=== PATIENT | male | born 1955 | race Caucasian/White ===

== ENCOUNTER → 2019-04-15 | Outpatient (REF) | payer MEDICARE, OTHER ==
[2019-04-15 20:25] LABS: BASO % 0.4 % (0.0-1.0); EOS # 0.1 10^3/uL (0.0-0.5); EOS % 1.6 % (0.0-3.0); HEMATOCRIT 40.8 % (42.0-52.0); HEMOGLOBIN 13.7 g/dl (13.5-17.5); LYMPH # 1.4 10^3/uL (1.5-5.0); LYMPH % 20.8 % (24.0-44.0); MEAN CORPUSCULAR HEMOGLOBIN 32.7 pg (27.0-33.0); MEAN CORPUSCULAR HGB CONC 33.6 g/dl (32.0-36.5); MEAN CORPUSCULAR VOLUME 97.4 fl (80.0-96.0); MONO # 0.5 10^3/uL (0.0-0.8); MONO % 7.1 % (0.0-5.0); NEUTROPHILS # 4.8 10^3/uL (1.5-8.5); NEUTROPHILS % 69.8 % (36.0-66.0); PLATELET COUNT, AUTOMATED 186 10^3/uL (150-450); RED BLOOD COUNT 4.19 10^6/uL (4.30-6.10); WHITE BLOOD COUNT 6.9 10^3/uL (4.0-10.0)
[2019-04-15 20:42] LABS: ALBUMIN 3.7 GM/DL (3.2-5.2); BILIRUBIN,TOTAL 0.6 MG/DL (0.2-1.0); CALCIUM LEVEL 8.6 MG/DL (8.8-10.2); CHOLESTEROL RISK RATIO 2.156 (<5); CREATININE FOR GFR 1.28 MG/DL (0.70-1.30); POTASSIUM SERUM 3.7 MEQ/L (3.5-5.1); THYROID STIMULATING HORMONE 0.942 uIU/ML (0.358-3.740); TOTAL PROTEIN 6.6 GM/DL (6.4-8.2)
[2019-04-15 20:52] LABS: HEMOGLOBIN A1c 5.6 %
[2019-04-17 14:27] LABS: PSA TOTAL 1.5 ng/mL (0.0-4.0)
== END ==
LOC: M SFHCLERA 14:38
PROVIDERS: ATTEND Family Medicine
DX: R39.9 Unspecified symptoms and signs involving the genitourinary system (principal); I10 Essential (primary) hypertension; Z79.899 Other long term (current) drug therapy
CPT/HCPCS: 80053; 80061; 83036; 84154; 84443; 85025; 90682; G0008; G0463

== ENCOUNTER → 2019-04-27 | Outpatient (REF) | payer MEDICARE, OTHER ==
[2019-04-27 14:02] LABS: APPEARANCE, URINE CLEAR (CLEAR); BACTERIA, URINE AUTO NEGATIVE (NEGATIVE); BILIRUBIN, URINE AUTO NEGATIVE (NEGATIVE); BLOOD, URINE BLOOD NEGATIVE (NEGATIVE); COLOR, URINE YELLOW (YELLOW); GLUCOSE, URINE (UA) AUTO NEGATIVE (NEGATIVE); KETONE, URINE AUTO NEGATIVE (NEGATIVE); LEUKOCYTE ESTERASE, URINE AUTO NEGATIVE (NEGATIVE); MUCUS, URINE SMALL (NEGATIVE); NITRITE, URINE AUTO NEGATIVE (NEGATIVE); PROTEIN, URINE AUTO NEGATIVE (NEGATIVE); RBC, URINE AUTO 1 /HPF (0-3); SPECIFIC GRAVITY URINE AUTO 1.019 (1.002-1.035); SQUAMOUS EPITHELIAL CELL UR AU 0 /HPF (0-6); UROBILINOGEN, URINE AUTO 0.2 mg/dL (0.0-2.0); WBC, URINE AUTO 0 /HPF (0-3)
== END ==
LOC: M SMT 13:17
PROVIDERS: ATTEND Nurse Practitioner Family
DX: R39.15 Urgency of urination (principal)
CPT/HCPCS: 51798; 81001; 87086; G0463

== ENCOUNTER → 2019-10-29 | Outpatient (REF) | payer MEDICARE, OTHER ==
[2019-10-29 10:59] LABS: BLOOD UREA NITROGEN 20 MG/DL (7-18); CALCIUM LEVEL 8.9 MG/DL (8.8-10.2); CARBON DIOXIDE LEVEL 31 MEQ/L (21-32); CHLORIDE LEVEL 107 MEQ/L (98-107); CREATININE FOR GFR 1.04 MG/DL (0.70-1.30); GLOMERULAR FILTRATION RATE > 60.0 (>49); GLUCOSE, FASTING 110 MG/DL (70-100); SODIUM LEVEL 141 MEQ/L (136-145)
== END ==
LOC: M SFHCLERA 08:18
PROVIDERS: ATTEND Family Medicine
DX: I10 Essential (primary) hypertension (principal)
CPT/HCPCS: 36415; 80048; G0463

== ENCOUNTER → 2019-12-06 | Outpatient (CLI) | payer MEDICARE, OTHER ==
[~2019-12-06] MED LIST: AMLO2.5T3 PO; ASPI81TA85 PO; CIDA500T2 PO; D 101000 PO; FINA5TAB2 PO; FLOM0.4C39 PO; K-TA10TA PO; LOSA100T50 PO; METO200T28 PO; MULTCAP PO; ROSU40TA4 PO; TRIA37.5 PO; TRIA37.53 PO
== END ==
LOC: M LABSMTC 09:01
PROVIDERS: ATTEND Anesthesiology
DX: Z03.818 Encounter for observation for suspected exposure to other biological agents ruled out (principal); Z11.59 Encounter for screening for other viral diseases
CPT/HCPCS: C9803; U0003

== ENCOUNTER 2019-12-09 07:42 | Day surgery (SDC) | payer MEDICARE, OTHER ==
[~2019-12-09] VITALS: Ht 172.7 cm; Wt 75.3 kg
[~2019-12-09 07:42] MED LIST changes: -ASPI81TA85 PO; +ASPI81TA86 PO; +LIDOCAINE 2% 100MG/5ML SDV (FOR ANES.) As Ordered ONE; +NS 1,000 ML IV ONE; +propofoL 200 MG/20 ML VIAL As Ordered ONE
[2019-12-09] MEDS ORDERED: propofoL 200 MG/20 ML VIAL As Ordered ONE (07:44)
[2019-12-09] MEDS ORDERED: LABETALOL 100MG/20ML VIAL As Ordered ONE (08:59)
--- NOTE | 2019-12-09 09:29 | ROOR ---
Patient Name: Yonatna Wnog Procedure Date: 12/09/2019 8:50 AM Date of : 1955 Age: 64 Room: [facility] Gender: Male Note Status: Finalized Procedure: Colonoscopy Indications: Screening for colorectal malignant neoplasm Providers: Philip Mary MD Referring MD: [facility], Admin. Requesting Provider: Medicines: Monitored Anesthesia Care Complications: No immediate complications. Procedure: Pre-Anesthesia Assessment: - Prior to the procedure, a History and Physical was performed, and patient medications and allergies were reviewed. The patient is competent. The risks and benefits of the procedure and the sedation options and risks were discussed with the patient. All questions were answered and informed consent was obtained. Patient identification and proposed procedure were verified by the physician, the nurse and the anesthesiologist in the procedure room. Mental Status Examination: alert and oriented. Airway Examination: normal oropharyngeal airway and neck mobility. Respiratory Examination: clear to auscultation. CV Examination: normal. Prophylactic Antibiotics: The patient does not require prophylactic antibiotics. Prior Anticoagulants: The patient has taken no previous anticoagulant or antiplatelet agents. ASA Grade Assessment: II - A patient with mild systemic disease. After reviewing the risks and benefits, the patient was deemed in satisfactory condition to undergo the procedure. The anesthesia plan was to use monitored anesthesia care (MAC). Immediately prior to administration of medications, the patient was re-assessed for adequacy to receive sedatives. The heart rate, respiratory rate, oxygen saturations, blood pressure, adequacy of pulmonary ventilation, and response to care were monitored throughout the procedure. The physical status of the patient was re-assessed after the procedure. The Colonoscope was introduced through the anus and advanced to the cecum, identified by appendiceal orifice and ileocecal valve. The colonoscopy was performed without difficulty. The patient tolerated the procedure well. The quality of the bowel preparation was good. The terminal ileum, ileocecal valve, appendiceal orifice, and rectum were photographed. Scope insertion time was 2 minutes. Scope withdrawal time was 9 minutes. The total duration of the procedure was 12 minutes. Findings: The perianal and digital rectal examinations were normal. The terminal ileum appeared normal. Two sessile polyps were found in the transverse colon and ascending colon. The polyps were 5 to 6 mm in size. These polyps were removed with a cold snare. Resection and retrieval were complete. Verification of patient identification for the specimen was done by the physician and nurse using the patient's name, date and medical record number. Estimated blood loss was minimal. Multiple small and large-mouthed diverticula were found from sigmoid to ascending colon. There was no evidence of diverticular bleeding. Non-bleeding external and internal hemorrhoids were found during retroflexion. The hemorrhoids were small. Impression: - The examined portion of the ileum was normal. - Two 5 to 6 mm polyps in the transverse colon and in the ascending colon, removed with a cold snare. Resected and retrieved. - Moderate diverticulosis from sigmoid to ascending colon. There was no evidence of diverticular bleeding. - Non-bleeding external and internal hemorrhoids. Recommendation: - Patient has a contact number available for emergencies. The signs and symptoms of potential delayed complications were discussed with the patient. Return to normal activities tomorrow. Written discharge instructions were provided to the patient. - High fiber diet. - Use fiber, for example Citrucel, Fibercon, Konsyl or Metamucil. - Await pathology results. - Repeat colonoscopy in 5-10 years for surveillance based on pathology results. - Telephone GI clinic for pathology results in 2 weeks. - Return to primary care physician. Philip Mary MD Philip Mary MD 12/09/2019 9:29:27 AM Electronically signed by Philip Mary MD Number of Addenda: 0 Note Initiated On: 12/09/2019 8:50 AM Estimated Blood Loss: Estimated blood loss was minimal.
[2019-12-09 09:45] VITALS: BP 142/84
== END 2019-12-09 09:46 | disposition home or self-care (01) ==
LOC: M OPP 07:42
PROVIDERS: ATTEND Internal Medicine Gastroenterology
DX: Z12.11 Encounter for screening for malignant neoplasm of colon (principal); K63.5 Polyp of colon; K57.30 Diverticulosis of large intestine without perforation or abscess without bleeding; K64.8 Other hemorrhoids; G47.30 Sleep apnea, unspecified; K21.9 Gastro-esophageal reflux disease without esophagitis; Z79.82 Long term (current) use of aspirin; Z79.899 Other long term (current) drug therapy; Z88.0 Allergy status to penicillin

== ENCOUNTER → 2020-07-01 | Outpatient (CLI) | payer MEDICARE, OTHER ==
[~2020-07-01] MED LIST changes: -LIDOCAINE 2% 100MG/5ML SDV (FOR ANES.) As Ordered ONE; -NS 1,000 ML IV ONE; -propofoL 200 MG/20 ML VIAL As Ordered ONE
--- NOTE | 2020-07-05 13:29 | SLEEPCENT ---
NOCTURNAL POLYSOMNOGRAPHY DATE: 07/01/2020 ORDERED BY: WILMA Clarke Nocturnal polysomnography was performed for the titration of pressure therapy in this patient with obstructive sleep apnea syndrome. For testing a [employer] nasal mask was used, 6 cm of water pressure were applied to the circuit, and the lights were extinguished. 8 hours and 14 minutes of data were reviewed. There were 385 minutes of sleep identified. Sleep latency was short at 4.5 minutes. REM latency was short at 63 minutes. Sleep architecture was fair with one period of wake between 2 and 3 a.m. There were, however, four REM cycles noted. Sleep efficiency was 78.7%. The electrocardiogram showed a sinus rhythm with an average heart rate of 58 beats per minute. EEG showed normal waveforms for wake and sleep. Respiratory events were best palliated with CPAP at a pressure of +5 and remaining measures of sleep physiology were normal. IMPRESSION: Obstructive sleep apnea syndrome (G47.33). RECOMMENDATION: Nightly use of pressure therapy 7 cm of water.
== END ==
LOC: M SLEEP 20:00
PROVIDERS: ATTEND Nurse Practitioner Family
DX: G47.33 Obstructive sleep apnea (adult) (pediatric) (principal)

== ENCOUNTER → 2021-01-19 | Outpatient (CLI) | payer MEDICARE, OTHER ==
--- NOTE | 2021-01-22 11:45 | ECHO ---
ECHOCARDIOGRAM DATE OF PROCEDURE: 01/19/2021 Age: Gender: Male Height: 68 inches Weight: 169 pounds REFERRING PHYSICIAN: Bhavesh Ferro M.D. INDICATION: Essential (primary) hypertension. MEASUREMENTS: 2D Measurements: Left atrium 3.4 cm Left atrial volume index 22 Interventricular septum 1.29 cm Posterior wall 1.35 cm Left ventricle diastole 4.1 cm Inferior vena cava 1.0 cm with normal respiratory variation Doppler measurements: No aortic regurgitation Aortic valve velocity 113 cm/sec LVOT velocity 73.8 cm/sec No mitral regurgitation Mitral E velocity 60.0 cm/sec Mitral A velocity 71.1 cm/sec Mitral deceleration time 185 msec No tricuspid regurgitation No pulmonic regurgitation Pulmonary acceleration time 180 msec MITRAL ANNULAR TISSUE DOPPLER: E prime septal 6.2 cm/sec E prime lateral 8.1 cm/sec DESCRIPTION: Rhythm was sinus. Image quality was fair. No pericardial effusion. This was a 2D, M-mode, color flow Doppler and pulse wave Doppler examination including mitral annular tissue Doppler. CONCLUSIONS: 1. Mild concentric left ventricular hypertrophy. Normal regional left ventricular (LV) wall motion and wall thickening. Normal LV systolic function. Left ventricular ejection fraction (LVEF) 60-65% by visual estimate. Grade 1 LV diastolic dysfunction. 2. Normal left atrial size. 3. Structurally and functionally normal A3-cuspid aortic valve. No aortic regurgitation. 4. Otherwise normal appearing echocardiogram Doppler.
== END ==
LOC: M CARPUL 08:44
PROVIDERS: ATTEND Internal Medicine
DX: I51.7 Cardiomegaly (principal); I50.9 Heart failure, unspecified; R01.1 Cardiac murmur, unspecified; I10 Essential (primary) hypertension

== ENCOUNTER → 2021-06-09 | Outpatient (REF) ==
[~2021-06-09] MED LIST changes: +LOSA100T45 PO; -LOSA100T50 PO
== END ==
LOC: M LABSMTC 12:05
PROVIDERS: ATTEND Pediatrics
DX: Z11.52 Encounter for screening for COVID-19 (principal); Z20.822 Contact with and (suspected) exposure to COVID-19

== ENCOUNTER → 2021-09-25 | Outpatient (CLI) | payer OTHER | LOC: M RAD 09:06 | PROVIDERS: ATTEND Internal Medicine | DX: M50.30 Other cervical disc degeneration, unspecified cervical region (principal); M48.03 Spinal stenosis, cervicothoracic region ==

== ENCOUNTER → 2021-11-23 | Outpatient (CLI) | payer OTHER, MEDICARE ==
[~2021-11-23] MED LIST changes: -TRIA37.53 PO; +TRIA37.577 PO
[2021-11-23 09:28] LABS: BLOOD UREA NITROGEN 22 MG/DL (7-18); CALCIUM LEVEL 9.4 MG/DL (8.8-10.2); CARBON DIOXIDE LEVEL 28 MEQ/L (21-32); CHLORIDE LEVEL 110 MEQ/L (98-107); CHOLESTEROL LEVEL 102 MG/DL (<200); CHOLESTEROL RISK RATIO 1.672 (<5); CREATININE FOR GFR 1.25 MG/DL (0.70-1.30); GLOMERULAR FILTRATION RATE > 60.0 (>49); GLUCOSE, FASTING 109 MG/DL (70-100); HDL CHOLESTEROL 61 MG/DL (>40); LDL CHOLESTEROL 26 MG/DL (<100); NON-HDL-C 41 MG/DL; POTASSIUM SERUM 4.6 MEQ/L (3.5-5.1); SODIUM LEVEL 142 MEQ/L (136-145); TRIGLYCERIDES LEVEL 75 MG/DL (<150)
[2021-11-23 09:42] LABS: HEMOGLOBIN A1c 5.5 %
== END ==
LOC: M LAB 08:33
PROVIDERS: ATTEND Family Medicine
DX: Z00.00 Encounter for general adult medical examination without abnormal findings (principal); Z12.5 Encounter for screening for malignant neoplasm of prostate; R09.89 Other specified symptoms and signs involving the circulatory and respiratory systems; E66.3 Overweight; M54.2 Cervicalgia; M89.9 Disorder of bone, unspecified; M43.12 Spondylolisthesis, cervical region
CPT/HCPCS: 36415; 80048; 80061; 83036; G0103

== ENCOUNTER → 2022-01-29 | Outpatient (CLI) | payer MEDICARE, OTHER ==
[2022-01-29 12:57] LABS: ALT/SGPT 25 U/L (12-78); BLOOD UREA NITROGEN 22 MG/DL (7-18); CALCIUM LEVEL 8.3 MG/DL (8.8-10.2); CARBON DIOXIDE LEVEL 28 MEQ/L (21-32); CHLORIDE LEVEL 108 MEQ/L (98-107); GLOMERULAR FILTRATION RATE > 60.0 (>49); GLUCOSE, FASTING 111 MG/DL (70-100); POTASSIUM SERUM 4.3 MEQ/L (3.5-5.1); SODIUM LEVEL 140 MEQ/L (136-145)
[2022-01-29 12:58] LABS: ALBUMIN 3.6 GM/DL (3.2-5.2); BILIRUBIN,TOTAL 0.4 MG/DL (0.2-1.0); RHEUMATOID FACTOR QUANT < 10.0 IU/ML (<15.0); TOTAL PROTEIN 6.5 GM/DL (6.4-8.2)
[2022-01-29 13:36] LABS: URIC ACID 3.4 MG/DL (3.5-7.2)
[2022-02-02 00:10] LABS: ANTINUCLEAR ANTIBODIES DIRECT Negative (Negative); CYCLIC CITRULLINATED PEPTIDE 6 units (0-19)
== END ==
LOC: M LAB 11:26
PROVIDERS: ATTEND Orthopaedic Surgery
DX: M47.812 Spondylosis without myelopathy or radiculopathy, cervical region (principal)

== ENCOUNTER → 2022-01-29 | Outpatient (CLI) | payer MEDICARE, OTHER | LOC: M SOG 10:08 | PROVIDERS: ATTEND Orthopaedic Surgery | DX: M43.02 Spondylolysis, cervical region (principal) ==

== ENCOUNTER → 2022-02-20 | Outpatient (CLI) | payer OTHER ==
[~2022-02-20] MED LIST changes: +PROHANCE 279.3MG/ML 15ML VIAL ONE
== END ==
LOC: M PLAIMG 08:17
PROVIDERS: ATTEND Orthopaedic Surgery
DX: M47.812 Spondylosis without myelopathy or radiculopathy, cervical region (principal)
CPT/HCPCS: 72156; A9576

== ENCOUNTER → 2022-02-28 | Outpatient (CLI) | payer OTHER ==
[~2022-02-28] MED LIST changes: -PROHANCE 279.3MG/ML 15ML VIAL ONE
[2022-03-01 21:07] LABS: ANA (HEP2) Negative (.)
== END ==
LOC: M LAB 10:45
PROVIDERS: ATTEND Orthopaedic Surgery
DX: M47.812 Spondylosis without myelopathy or radiculopathy, cervical region (principal); M40.202 Unspecified kyphosis, cervical region

== ENCOUNTER → 2025-05-18 | Outpatient (CLI) | payer OTHER, MEDICARE ==
[~2025-05-18] MED LIST changes: -FLOM0.4C39 PO; -K-TA10TA PO; -LOSA100T45 PO; +LOSA100T46 PO; +METO200T15 PO; -METO200T28 PO; +POTA-164 PO; -ROSU40TA4 PO; +ROSU40TA81 PO; +TAMS-18 PO
[2025-05-18 11:36] LABS: BASO # 0.0 10^3/uL (0.0-0.2); BASO % 0.9 % (0.0-1.0); EOS # 0.2 10^3/uL (0.0-0.5); EOS % 4.5 % (0.0-3.0); LYMPH # 1.2 10^3/uL (1.5-5.0); LYMPH % 26.2 % (24.0-44.0); MONO # 0.5 10^3/uL (0.0-0.8); MONO % 10.0 % (2.0-8.0); NEUTROPHILS # 2.7 10^3/uL (1.5-8.5); NEUTROPHILS % 58.2 % (36.0-66.0); PLATELET COUNT, AUTOMATED 158 10^3/uL (150-450)
[2025-05-18 11:42] LABS: ALT/SGPT 21 U/L (7.0-40); AST/SGOT 24 U/L (<34); CALCIUM LEVEL 8.9 MG/DL (8.3-10.6); CARBON DIOXIDE LEVEL 32 MMOL/L (20-31); CHLORIDE LEVEL 105 MMOL/L (98-107); CHOLESTEROL LEVEL 113 MG/DL (<200); CHOLESTEROL RISK RATIO 1.81 (<5); CREATININE FOR GFR 0.97 MG/DL (0.70-1.30); GLOMERULAR FILTRATION RATE 83.5 (>42); LDL CHOLESTEROL 38.4 MG/DL (<100); NON-HDL-C 50.6 MG/DL; POTASSIUM SERUM 4.5 MMOL/L (3.5-5.1); SODIUM LEVEL 141 MMOL/L (136-145); TRIGLYCERIDES LEVEL 61 MG/DL (<150)
[2025-05-18 11:43] LABS: FREE T4 1.00 NG/DL (0.89-1.76)
[2025-05-18 12:08] LABS: HIV 1&2 SCREEN NEGATIVE (NEGATIVE)
[2025-05-18 12:15] LABS: ESTIMATED AVERAGE GLUCOSE 120.0 MG/DL (60-110)
[2025-05-18 12:17] LABS: HEPATITIS C VIRUS ABY INDEX 0.02 INDEX (<0.8)
[2025-05-20 11:46] LABS: PSA % FREE 48.0 % (calc) (>25); PSA FREE 1.2 ng/mL; PSA TOTAL 2.5 ng/mL (< OR = 4.0)
== END ==
LOC: M PLALAB 08:36
PROVIDERS: ATTEND Physician Assistant
DX: Z01.89 Encounter for other specified special examinations (principal); R73.01 Impaired fasting glucose; E78.2 Mixed hyperlipidemia; I10 Essential (primary) hypertension; N40.1 Benign prostatic hyperplasia with lower urinary tract symptoms; Z13.0 Encounter for screening for diseases of the blood and blood-forming organs and certain disorders involving the immune mechanism